=== PATIENT | male | born 1980 | race Caucasian/White ===

== ENCOUNTER 2020-10-17 14:31 | Emergency (ER) | payer OTHER ==
[~2020-10-17] VITALS: Ht 172.7 cm; Wt 81.6 kg
[2020-10-17] MEDS ORDERED: ASPIRIN 81 MG CHEW (CHILDREN'S ASA) PO ONE (14:45)
--- NOTE | 2020-10-17 14:45 | ED Chest Pain ---
General Stated Complaint: CHEST PAIN Source: patient History of Present Illness Date Seen by Provider: Oct 17, 2020 Time Seen by Provider: 14:39 Initial Comments 40-year-old male presenting with complaints of chest pressure and tightness since 5 AM on October 16. He states that this woke him up yesterday morning. He feels better when he is up and active. When he sits or lays down then feels worse. He has some shortness of breath with this. He has no nausea or vomiting. He denies any cough or congestion. He has had no fever or chills. He denies having symptoms like this before. He has had a fast heart rate when he was exerting himself and was prescribed metoprolol but states has not taken any for several weeks. He has an appointment to see a wood planer visiting in the clinic from [place] on October 18. Location: substernal Activities at Onset: sleep Prior CP/Workup: no prior chest pain, no prior cardiac workup ASA po OVEN STRIPPER: No NTG SL OVEN STRIPPER: No Associated Symptoms: No abdominal pain, No back pain, No diaphoresis, No dizziness, No edema, No fatigue, No fever/chills, No headache, No heartburn, No nausea/vomiting, No rash; shortness of breath; No swelling/lump in chest, No syncope, No weakness Allergies and Home Medications Allergies Coded Allergies: iron (Unverified Allergy, Unknown, 10/17/20) Patient Home Medication List Home Medication List Reviewed: Yes Review of Systems Review of Systems Constitutional: No chills, No diaphoresis, No fever EENTM: No Symptoms Reported Respiratory: See HPI Cardiovascular: See HPI Gastrointestinal: No Symptoms Reported Genitourinary: No Symptoms Reported Musculoskeletal: no symptoms reported Skin: no symptoms reported Psychiatric/Neurological: No Symptoms Reported Endocrine: No Symptoms Reported Past Ddgpjch-Jsmvcv-Gsrgxh Hx Past Medical History Surgeries: No Respiratory: No Cardiac: No Reproductive Disorders: Yes Physical Exam Vital Signs Vital Signs - First Documented 10/17/20 14:34 Temp 36.2 Pulse 40 Resp 12 B/P (MAP) 153/81 (105) Pulse Ox 96 O2 Delivery Room Air Capillary Refill : Height, Weight, BMI Height: '" Weight: lbs. oz. kg; BMI Method: General Appearance: No Apparent Distress, WD/WN Neck: Full Range of Motion, Normal Inspection, Non Tender, Supple Respiratory: Chest Non Tender, Lungs Clear, Normal Breath Sounds, No Accessory Muscle Use, No Respiratory Distress Cardiovascular: No Edema, No Murmur, Normal Peripheral Pulses, Bradycardia Gastrointestinal: Normal Bowel Sounds, No Pulsatile Mass, Non Tender, Soft Rectal: Deferred Extremity: Normal Capillary Refill, Normal Inspection, No Pedal Edema Neurologic/Psychiatric: Alert, Oriented x3 Skin: Normal Color, Warm/Dry Progress/Results/Core Measures Results/Orders Lab Results Laboratory Tests Test 10/17/20 14:42 Range/Units White Blood Count 9.3 4.3-11.0 10^3/uL Red Blood Count 4.35 4.35-5.85 10^6/uL Hemoglobin 13.7 13.3-17.7 G/DL Hematocrit 39 L 40-54 % Mean Corpuscular Volume 89 80-99 FL Mean Corpuscular Hemoglobin 31 25-34 PG Mean Corpuscular Hemoglobin Concent 35 32-36 G/DL Red Cell Distribution Width 12.6 10.0-14.5 % Platelet Count 185 130-400 10^3/uL Mean Platelet Volume 11.8 H 7.4-10.4 FL Immature Granulocyte % (Auto) 0 % Neutrophils (%) (Auto) 61 42-75 % Lymphocytes (%) (Auto) 31 12-44 % Monocytes (%) (Auto) 7 0-12 % Eosinophils (%) (Auto) 1 0-10 % Basophils (%) (Auto) 0 0-10 % Neutrophils # (Auto) 5.6 1.8-7.8 X 10^3 Lymphocytes # (Auto) 2.9 1.0-4.0 X 10^3 Monocytes # (Auto) 0.6 0.0-1.0 X 10^3 Eosinophils # (Auto) 0.1 0.0-0.3 10^3/uL Basophils # (Auto) 0.0 0.0-0.1 10^3/uL Immature Granulocyte # (Auto) 0.0 0.0-0.1 10^3/uL Prothrombin Time 12.6 12.2-14.7 SEC INR Comment 0.9 0.8-1.4 Activated Partial Thromboplast Time 32 24-35 SEC Sodium Level 142 135-145 MMOL/L Potassium Level 3.7 3.6-5.0 MMOL/L Chloride Level 110 H 98-107 MMOL/L Carbon Dioxide Level 23 21-32 MMOL/L Anion Gap 9 5-14 MMOL/L Blood Urea Nitrogen 13 7-18 MG/DL Creatinine 0.82 0.60-1.30 MG/DL Estimat Glomerular Filtration Rate 104 BUN/Creatinine Ratio 16 Glucose Level 123 H 70-105 MG/DL Calcium Level 8.9 8.5-10.1 MG/DL Corrected Calcium 9.1 8.5-10.1 MG/DL Magnesium Level 1.6 1.6-2.4 MG/DL Total Bilirubin 0.5 0.1-1.0 MG/DL Aspartate Amino Transf (AST/SGOT) 92 H 5-34 U/L Alanine Aminotransferase (ALT/SGPT) 178 H 0-55 U/L Alkaline Phosphatase 68 40-136 U/L Troponin I < 0.30 <0.30 NG/ML Pro-B-Type Natriuretic Peptide 248.4 H <75.0 PG/ML Total Protein 6.1 L 6.4-8.2 GM/DL Albumin 3.8 3.2-4.5 GM/DL My Orders Orders - DARLEEN ROBLES MD Cbc With Automated Diff (10/17/20 14:40) Magnesium (10/17/20 14:40) Chest 1 View Ap/Pa Only (10/17/20 14:40) Ekg Tracing (10/17/20 14:40) Comprehensive Metabolic Panel (10/17/20 14:40) Protime With Inr (10/17/20 14:40) Partial Thromboplastin Time (10/17/20 14:40) O2 (10/17/20 14:40) Monitor-Rhythm Ecg Trace Only (10/17/20 14:40) Aspirin Chewable Tablet (Baby Aspirin Ch (10/17/20 14:45) Ed Iv/Invasive Line Start (10/17/20 14:40) Troponin I Fs (10/17/20 14:40) Probnp Fs (10/17/20 14:40) Ns Iv 1000 Ml (Sodium Chloride 0.9%) (10/17/20 15:15) Atropine Inj 1 Mg Syringe (Atropine Inj (10/17/20 15:29) Atropine Injection (Atropine Injection) (10/17/20 15:38) Magnesium 1 Gm/100 Ml Ivpb (Magnesium Stewart (10/17/20 16:31) Acetaminophen Tablet (Tylenol Tablet) (10/17/20 16:34) Medications Given in ED Current Medications Medications Dose Ordered Sig/[place] Route Start Time Stop Time Status Last Admin Dose Admin Aspirin 324 mg ONCE ONCE PO 10/17/20 14:45 10/17/20 14:46 DC 10/17/20 14:49 324 MG Atropine Sulfate 0.4 mg STK-MED ONCE .ROUTE 10/17/20 15:38 10/17/20 15:41 DC 10/17/20 15:48 0.4 MG Vital Signs/I&O 10/17/20 10/17/20 10/17/20 14:34 14:34 17:53 Temp 36.2 36.5 Pulse 40 57 Resp 12 12 B/P (MAP) 153/81 (105) 142/92 (105) Pulse Ox 96 96 O2 Delivery Room Air Room Air Room Air Progress Progress Note #1: Progress Note Electrocardiogram does not show any acute ST elevation or ischemia. Obtain labs as well as chest x-ray. Give 324 mg of aspirin and a liter of normal saline. Advised patient that if his troponin and cardiac enzymes did not show signs of damage will try dose of atropine to help with his heart rate however he currently is maintaining a good blood pressure and does not need additional support for his heart rate. Progress Note #2: Progress Note Chest x-ray is clear without signs of pneumonia or failure. His labs appear stable without acute significant cardiac findings. He had a troponin less than 0.3. Especially considering his pressure distress started at 5 AM on October 16 by now if this was a heart attack there really should have been that bump in his enzymes. He has continued bradycardia with heart rate in the 30s to 40s. He continues to have blood pressure in the 140s to 150 systolic. Progress Note #3: Progress Note After atropine 0.5 mg has heart rate did come up into the 70s. He also had a bump in his blood pressure to 180/105-110. He started to develop a little headache with his elevated blood pressure. He has continued pressure in his chest. He denies nausea or vomiting. As he did require atropine to help with his heart rate will check with cardiology about admission versus outpatient follow-up since he has appointment 1:20 PM October [id number] discussed with Dr. Ngo from cardiology and he stated it sounded like the chest pressure was not related to cardiac ischemia as his troponin was 0 after almost 36 hours of symptoms. He cannot say for sure about admission with not physically seeing the patient however he commented that it sounded as though the patient was stable and could likely keep his appointment with cardiology since he would have a close follow up at 1:20 pm tomorrow. I will check with patient and see if he was comfortable with watching this at home knowing that he has the appointment in the afternoon tomorrow. If he has worsening symptoms or felt like he did need to be admitted he could always return or go directly to [place]. Progress Note #4: Progress Note After the magnesium infused patient was feeling fine and was agreeable with going home. His heart rate had slowed back down to the 50-60 range. His blood pressure had also drifted back down to 1 40-1 50 systolic. Counseled on follow- up and return precautions. Advised if he has worsening symptoms worsening dizzy lightheaded or problems to return. If he felt stable but like he needed to be admitted or seen by cardiology he could also certainly drive directly to [facility] to be admitted for cardiology consult. Otherwise keep the appointment at 120 in the afternoon on October 18 to see the wood planer from [facility] as already scheduled Initial ECG Impression Date: Oct 17, 2020 Initial ECG Impression Time: 14:36 Initial ECG Rate: 40 Initial ECG Rhythm: S.Mariano Initial ECG Comparisson: No Previous ECG Available Comment Sinus bradycardia with heart rate 40 bpm. CA interval [address] elevation. QT interval 461 ms and QTc interval 376 ms. No prior tracing av ailable for comparison. Diagnostic Imaging Diagonstic Imaging: Xray Plain Films/CT/US/NM/MRI: chest Comments [facility], [facility]. [place], [place] NAME: [facility] REC#: [id number] PT STATUS: REG ER : 1980 PHYSICIAN: DARLEEN ROBLES MD ADMIT DATE: 10/17/20/ER FS Draft Date of Exam:10/17/20 CHEST 1 VIEW AP/PA ONLY EXAMINATION: Chest, one view. HISTORY: Chest tightness. COMPARISON: None available. FINDINGS: The lungs are clear without edema or pneumonia. No pleural effusion or pneumothorax. Heart size is normal. IMPRESSION: 1. Clear lungs. Dictated on workstation # [id number] Dict: 10/17/20 1502 Trans: 10/17/20 1515 [id number] Interpreted by: LORE FRANKS MD Electronically signed by: Reviewed: Reviewed by Me Departure Impression Primary Impression: Sinus bradycardia Additional Impressions: Chest pressure Hypomagnesemia Disposition: HOME, SELF-CARE Condition: Stable Departure-Patient Inst. Decision time for Depature: 17:40 Referrals: NAKITA REBOLLAR DO (PCP/Family) Primary Care Physician Patient Instructions: Bradycardia (DC), Low Magnesium Level (DC) Add. Discharge Instructions: Keep your appointment with cardiology Sunday 1:20 pm on October 18. If you have dizziness, worsening symptoms or feel like you need to be seen and evaluated again then feel free to return to the ER. If you are not feeling worse or dizzy but you want to be seen and see Cardiology, you may also go directly to [facility] in [place] to be evaluated in case you need to be admitted to the hospital. Scripts No Active Prescriptions or Reported Meds DARLEEN ROBLES MD Oct 17, 2020 14:45
[2020-10-17 14:48] LABS: BASOPHILS % (AUTO) 0 % (0-10); EOSINOPHILS # (AUTO) 0.1 10^3/uL (0.0-0.3); EOSINOPHILS % (AUTO) 1 % (0-10); HEMATOCRIT 39 % (40-54); HEMOGLOBIN 13.7 G/DL (13.3-17.7); LYMPHOCYTES # (AUTO) 2.9 X 10^3 (1.0-4.0); LYMPHOCYTES % (AUTO) 31 % (12-44); MEAN CORPUSCULAR HEMOGLOBIN 31 PG (25-34); MEAN CORPUSCULAR HGB CONC 35 G/DL (32-36); MEAN CORPUSCULAR VOLUME 89 FL (80-99); MEAN PLATELET VOLUME 11.8 FL (7.4-10.4); MONOCYTES # (AUTO) 0.6 X 10^3 (0.0-1.0); MONOCYTES % (AUTO) 7 % (0-12); NEUTROPHILS # (AUTO) 5.6 X 10^3 (1.8-7.8); NEUTROPHILS % (AUTO) 61 % (42-75); PLATELET COUNT 185 10^3/uL (130-400); WHITE BLOOD COUNT 9.3 10^3/uL (4.3-11.0)
[2020-10-17 15:00] LABS: INR 0.9 (0.8-1.4); PROTHROMBIN TIME PATIENT 12.6 SEC (12.2-14.7)
[2020-10-17] MEDS ORDERED: ATROPINE INJECTION 1 MG/10 ML SYR (ABBOTT) IV STA ×2 (15:09→15:29)
[2020-10-17] MEDS ORDERED: NS IV 1000 ML 1,000 ML IV SCH (15:15)
--- NOTE | 2020-10-17 15:15 | Diagnostic Imaging Report ---
EXAMINATION: Chest, one view. HISTORY: Chest tightness. COMPARISON: None available. FINDINGS: The lungs are clear without edema or pneumonia. No pleural effusion or pneumothorax. Heart size is normal. IMPRESSION: 1. Clear lungs. Dictated by: Dictated on workstation # [id number]
[2020-10-17 15:23] LABS: ALBUMIN 3.8 GM/DL (3.2-4.5); BILIRUBIN,TOTAL 0.5 MG/DL (0.1-1.0); CALCIUM 8.9 MG/DL (8.5-10.1); CREATININE SERUM 0.82 MG/DL (0.60-1.30); MAGNESIUM 1.6 MG/DL (1.6-2.4); POTASSIUM 3.7 MMOL/L (3.6-5.0); TOTAL PROTEIN 6.1 GM/DL (6.4-8.2)
[2020-10-17] MEDS ORDERED: ATROPINE INJ 0.4 MG/ML SDV ONE (15:38)
[2020-10-17] MEDS ORDERED: MAGNESIUM 1 GM/100 ML IVPB 100 ML IV STA (16:31)
[2020-10-17] MEDS ORDERED: ACETAMINOPHEN 500 MG TAB (TYLENOL) PO STA (16:34)
[2020-10-17 17:53] VITALS: BP 142/92
== END 2020-10-17 17:53 | disposition home or self-care (01) ==
LOC: EDUNIT# 14:31 → ER FS 14:33
DX: R00.1 Bradycardia, unspecified (principal); R07.89 Other chest pain; E83.42 Hypomagnesemia
CPT/HCPCS: 36415; 71045; 80053; 83735; 83880; 84484; 85025; 85610; 85730; 93005; 93041